=== PATIENT | female | born 1955 | race Caucasian/White ===

== ENCOUNTER 2022-02-12 16:17 | Outpatient (REF) | payer OTHER, MEDICARE, SELFPAY ==
[2022-02-12 17:08] LABS: Abs Immature Grans 0.03 10^3/uL (0.0-0.06); Absolute Basophil Count 0.04 10^3/uL (0.0-0.2); Absolute Eosinophil Count 0.11 10^3/uL (0.0-0.7); Absolute Lymphocyte Count 2.78 10^3/uL (1.2-3.4); Absolute Monocyte Count 0.49 10^3/uL (0.1-0.8); Absolute Neutrophil Count 4.15 10^3/uL (1.2-6.7); Basophils % 0.5; Eosinophils % 1.4; HCT 45.7 % (36.0-46.0); HGB 14.3 g/dL (11.2-15.7); Immature Grans % 0.4; Lymphocytes % 36.6; MCH 27.5 pg (27.0-33.0); MCHC 31.3 % (32.0-36.0); MCV 88 fL (80-95); MPV 10.5 fL (8.0-11.0); Monocytes % 6.4; Neutrophils % 54.7; Platelet Count 343 10^3/uL (130-400); RDW 13.2 % (11.7-14.6); RDW-SD 42.5 fL
[2022-02-12 17:11] LABS: ESR 66 mm/hr (0-30)
[2022-02-12 17:51] LABS: Vitamin D 25 Total 37.2 ng/mL (30-100)
[2022-02-12 17:52] LABS: ALT 38 U/L (14-59); AST 23 U/L (15-37); Albumin 3.8 g/dL (3.4-5.0); Alkaline Phosphatase 117 U/L (46-116); Anion Gap 10.5 mmol/L (3-11); BUN 19 mg/dL (7-18); Bilirubin, Total 0.3 mg/dL (0.2-1.0); CO2 27.5 mmol/L (21.0-32.0); CREATININE 0.7 mg/dL (0.55-1.02); Calcium 9.1 mg/dL (8.5-10.1); Calculated LDL 338 mg/dL (<100); Chloride 101 mmol/L (98-107); Cholesterol 422 mg/dL (<200); Glucose 198 mg/dL (74-106); HDL Cholesterol 50 mg/dL (40-60); Potassium 4.4 mmol/L (3.5-5.1); Sodium 139 mmol/L (136-145); TSH (W/Ref FT4) 1.51 uIU/mL (0.36-3.74); Total Protein 7.6 g/dL (6.4-8.2); Triglyceride 170 mg/dL (<150); Vitamin B12 342 pg/mL (193-986)
[2022-02-12 18:01] LABS: C-Reactive Protein 3.09 mg/dL (0.0-0.3)
[2022-02-14 10:51] LABS: Hepatitis C Ab w Rflx HCV PCR Negative (Negative)
[2022-02-14 11:20] LABS: HIV-1/2 Ag & Ab Screen Negative (Negative)
== END 2022-02-12 16:18 | disposition home or self-care (01) ==
LOC: NCHCN 16:17
PROVIDERS: PCP Nurse Practitioner Family; Visit Provider Nurse Practitioner Family
DX: E53.9 Vitamin B deficiency, unspecified (principal); E55.9 Vitamin D deficiency, unspecified; E78.70 Disorder of bile acid and cholesterol metabolism, unspecified; E11.9 Type 2 diabetes mellitus without complications; R79.82 Elevated C-reactive protein (CRP); R63.5 Abnormal weight gain; Z00.00 Encounter for general adult medical examination without abnormal findings; Z11.4 Encounter for screening for human immunodeficiency virus [HIV]; Z11.59 Encounter for screening for other viral diseases
CPT/HCPCS: 80053; 80061; 82306; 85652; 86803; 87389; 82607; 84443; 85025; 86140

== ENCOUNTER → 2022-02-22 02:36 | Outpatient (CLI) | payer OTHER, MEDICARE, SELFPAY ==
--- NOTE | 2022-02-22 14:30 | DI.MAMMO_ITS ---
Exam(s) MAMMO SCREENING EXAM: MAMMO SCREENING CLINICAL HISTORY: SCREENING, [facility], Z00.00. TECHNIQUE: Bilateral full field digital CC and MLO mammographic images were obtained with 3D tomosyn thesis and utilizing computer aided detection (CAD). COMPARISON: None. FINDINGS: Multiple small nodular densities in both breasts noted. Recommend comparison to prior outside mammograms. There is also a microcalcification group in the right breast requires comparison to prior mammograms. There is no significant architectural distortion nor skin thickening-retraction. IMPRESSION: Bilateral findings described above. Recommend comparison to prior mammograms. Addendum will follow if these are received. If not then repeat mammogram in 6 months would be recommended BI-RADS Category 3 - 6 month - Probably Benign Finding: Recommend follow-up mammography in 6 months Breast Density - Category B - Scattered areas of fibroglandular density Breast density Category C or D implies that the patient has dense breast tissue. Dense breast tissue can make it harder to find cancer on a mammogram. Dense breast tissue is also associated with an incr eased risk of breast cancer. This information about the result of the mammogram report was provided to the patient to raise their awareness. Use this report when you speak with the patient about their risks for breast cancer, which includes their family history. At that time, you may recommend additional screening tests (Ultrasoun d or MRI) as these tests may add significant information. A negative radiographic report should not delay biopsy if a dominant or clinically suspicious mass is present. Up to ten percent of cancers are not identified on mammography. A negative report may reinforce clinical impression. Adenosis and dense breasts may obscure an underlying neoplasm. False positive reports average 6 to 10%. Patient will receive a letter notifying them of these results.
== END ==
PROVIDERS: PCP Nurse Practitioner Family; Visit Provider Nurse Practitioner Family
DX: Z12.31 Encounter for screening mammogram for malignant neoplasm of breast (principal); R92.0 Mammographic microcalcification found on diagnostic imaging of breast; Z00.00 Encounter for general adult medical examination without abnormal findings
CPT/HCPCS: 77063; 77067

== ENCOUNTER 2022-03-15 04:32 | Outpatient (CLI) | payer OTHER, MEDICARE, SELFPAY ==
--- NOTE | 2022-03-15 14:00 | NS.NUTBLAN_ITS ---
Yamel was referred to diabetes and lipid self management education. 5'4 208 lbs BMI: 36 Labs: (02/12/22): Chol: 422, LDL: 338, HDL: 50, tri, A1C: 10.3%, VIt D: 37 L, TSH wnl DM meds: metformin 1000 mg BID Diet Recall: B: none, L: tofu, flaxseed, mae, wanuts- often eats only once daily. Hydrates all day. Session today focused on how to count carbs and protein and limit processed carbs with emphasis on lean protein and healthy fats. Xavier enjoys intermittent fasting and often eats only once daily. This works for her and she feels well- however, she is missing many necessary nutrients especially protein, Vit D. . Elevated lipids treated with a statin, weight loss and glycemic management should improve lipids as well. Surprised triglycerides only mildly elevated in view of A1C. Session also included placing Dexcom 6 continuous glucose monitor to better understand glycemic patterns. Most recent A1C indicates blood sugars mostly > 200 mg/dl. Encouraged using apps on phone to track carb/protein intake and steps per day. Follow up planned in next week for data download and review of glycemic excursions.
== END 2022-03-15 04:33 | disposition home or self-care (01) ==
LOC: DS 04:33
PROVIDERS: PCP Nurse Practitioner Family; Visit Provider Dietitian, Registered
DX: E11.9 Type 2 diabetes mellitus without complications (principal); E78.5 Hyperlipidemia, unspecified; Z79.84 Long term (current) use of oral hypoglycemic drugs; Z71.3 Dietary counseling and surveillance
CPT/HCPCS: 97802

== ENCOUNTER 2022-03-28 01:46 | Outpatient (CLI) | payer OTHER, MEDICARE, SELFPAY ==
--- OUTSIDE RECORDS SUMMARY | 2022-03-28 02:05 | XMS_ITS | Encounter Summary ---
:1955 Demographics Home Phone Preferred Language Unknown Marital Status Unknown Syn[employer] Affiliation Unknown Race Unknown Ethnic Group Unknown Author Organization [facility] Address [address] [place] [address] Care Team Providers Name Role Phone Unavailable Primary Care Provider Unavailable Encounter Details Date Type Department Care Team Description 02/13/2022 Lab Requisition [facility] Outr Resulting Lab, Pathology & Laboratory Provider [facility] [address] [place] [address] Social History Tobacco Use Types Packs/Day Years Used Date Never Assessed Sex Assigned at Date Recorded Not on file documented as of this encounter Plan of Treatment Not on filedocumented as of this encounter Procedures Procedure Name Priority Date/Time Associated Diagnosis Comme nts HEPATITIS C AB W Routine 02/12/2022 11:05 Results for this REFLEX TO HCV RNA EDT procedure are in BY PCR the results section. documented in this encounter Results HEPATITIS C AB W REFLEX TO HCV RNA BY PCR (02/12/2022 11:05 EDT) Pathologist Sig nature Hep C Antibody Negative Negative [facility] Specimen Blood - Venous blood (substance) Performing Organization Address City/State/ZIP Code Phon e Number [facility] [address] [place] [address] SERVICES documented in this encounter Visit Diagnoses Not on filedocumented in this encounter
--- OUTSIDE RECORDS SUMMARY | 2022-03-28 02:05 | XMS_ITS | Encounter Summary ---
:1955 Demographics Home Phone Preferred Language Unknown Marital Status Unknown Restorationism Affiliation Unknown Race Unknown Ethnic Group Unknown Author Organization [facility] Address [address] [place] [address] Care Team Providers Name Role Phone Unavailable Primary Care Provider Unavailable Encounter Details Date Type Department Care Team Description 02/13/2022 Lab Requisition [facility] Outr Resulting Lab, Pathology & Laboratory Provider [facility] [address] [place] [address] Social History Tobacco Use Types Packs/Day Years Used Date Never Assessed Sex Assigned at Date Recorded Not on file documented as of this encounter Plan of Treatment Not on filedocumented as of this encounter Procedures Procedure Name Priority Date/Time Associated Comments Diagnosis HIV 1/2 ANTIGEN AND Routine 02/12/2022 11:05 Resu lts for this ANTIBODY, 4TH EDT procedure are in GENERATION the results section. documented in this encounter Results HIV 1/2 ANTIGEN AND ANTIBODY, 4TH GENERATION (02/12/2022 11:05 EDT) HIV 1 and 2 NegativeComment: If Negative [facility] Antibody/p24 acute HIV-1 LABORATORY Antigen, 4th infection is SERVICES Generation suspected in a high risk patient, submit plasma specimen for HIV-1 RNA quantitation test. Specimen Blood - Venous blood (substance) Narrative [facility] - 02/14/2022 11:17 EDT Fourth Generation assay performed on the Siemens Centaur XPT. Performing Organization Address City/State/ZIP Code Phon e Number [facility] [address] [place] [address] SERVICES documented in this encounter Visit Diagnoses Not on filedocumented in this encounter
--- NOTE | 2022-03-28 13:00 | NS.NUTBLAN_ITS ---
Yamel returns for data down load after wearing a Dexcom 6 Continuous Glucose Monitor. Wt: 211 lbs, 5'4 down 5 lbs in last 4 weeks. Dm meds: 1000 mg metformin BID Diet Recall: eats once daily- typically tofu/tempeh with vegetables and complex carbs. Exercise: walks 30 min daily Ambulatory Glucose Profile: 03/12/22-03/25/22 Average Glucose: 132 mg/dl Time in Range (70-180): 94.6% of time 181- 250 mg/dl: 5.4% of time No hypoglycemia or levels above 250 mg/dl. Data indicates excellent glycemic management. Reports CGM data keeps her motivated to remain in ideal range. Will provide additional free sensor sample when supply available. At this time, Yamel will most likely will not be able to get sensors on her insurance plan as not taking multiple daily injections of insulin. No follow up scheduled at this time. Will follow up prn.
== END 2022-03-28 01:47 | disposition home or self-care (01) ==
PROVIDERS: PCP Nurse Practitioner Family; Visit Provider Dietitian, Registered
DX: E11.9 Type 2 diabetes mellitus without complications (principal); Z79.84 Long term (current) use of oral hypoglycemic drugs; Z71.3 Dietary counseling and surveillance
CPT/HCPCS: 97803

== ENCOUNTER 2022-11-29 17:26 | Outpatient (REF) | payer MEDICARE, OTHER, SELFPAY ==
[2022-11-29 19:51] LABS: Abs Immature Grans 0.01 10^3/uL (0.0-0.06); Absolute Basophil Count 0.04 10^3/uL (0.0-0.2); Absolute Eosinophil Count 0.09 10^3/uL (0.0-0.7); Absolute Lymphocyte Count 2.74 10^3/uL (1.2-3.4); Absolute Monocyte Count 0.52 10^3/uL (0.1-0.8); Absolute Neutrophil Count 3.82 10^3/uL (1.2-6.7); Basophils % 0.6; Eosinophils % 1.2; HCT 42.1 % (36.0-46.0); HGB 13.6 g/dL (11.2-15.7); Immature Grans % 0.1; MCH 28.3 pg (27.0-33.0); MCHC 32.3 % (32.0-36.0); MCV 88 fL (80-95); MPV 10.1 fL (8.0-11.0); Monocytes % 7.2; Neutrophils % 52.9; Platelet Count 336 10^3/uL (130-400); RBC 4.81 10^6/uL (3.93-5.22); RDW 13.3 % (11.7-14.6); WBC 7.22 10^3/uL (4.4-10.8)
[2022-11-29 20:06] LABS: Hemoglobin A1C 8.7 % (<5.7)
[2022-11-29 20:26] LABS: Vitamin D 25 Total 29.4 ng/mL (30-100)
[2022-11-29 20:28] LABS: Anion Gap 7.4 mmol/L (3-11); BUN 20 mg/dL (7-18); CO2 30.6 mmol/L (21.0-32.0); CREATININE 0.9 mg/dL (0.55-1.02); Calcium 9.5 mg/dL (8.5-10.1); Calculated LDL 283 mg/dL (<100); Chloride 99 mmol/L (98-107); Cholesterol 376 mg/dL (<200); Estimated GFR 70.95 (mL/min/1.73m2); Glucose 226 mg/dL (74-106); HDL Cholesterol 48 mg/dL (40-60); Potassium 4.5 mmol/L (3.5-5.1); Sodium 137 mmol/L (136-145); TSH (W/Ref FT4) 1.44 uIU/mL (0.36-3.74); Triglyceride 228 mg/dL (<150); Vitamin B12 316 pg/mL (193-986)
== END 2022-11-29 17:27 | disposition home or self-care (01) ==
LOC: NCHCN 17:26
PROVIDERS: PCP Nurse Practitioner Family; Visit Provider Nurse Practitioner Family
DX: E11.9 Type 2 diabetes mellitus without complications (principal)
CPT/HCPCS: 80048; 80061; 82306; 82607; 83036; 84443; 85025

== ENCOUNTER 2023-01-24 10:53 | Outpatient (CLI) | payer MEDICARE, OTHER, SELFPAY ==
--- NOTE | 2023-01-24 | DI.RAD_ITS ---
Exam(s) XR CHEST 2V PA LATERAL EXAM: XR CHEST 2V PA LATERAL CLINICAL HISTORY: CHRONIC COUGH R05.3 TECHNIQUE: 2D digital imaging was performed of the chest. Two images were obtained. PA and lateral views were obtained. COMPARISON: No exams were available for comparison FINDINGS: MEDIASTINUM: Normal. HEART: Normal. PULMONARY VASCULATURE: Normal. LUNGS: Clear. PLEURAL SPACE: No pleural effusion or pneumothorax. BONE:Within normal limits for the patient's age. OTHER FINDINGS:Normal. IMPRESSION: No acute pulmonary findings. DATA REPOSITORY: RADIATION DOSE DELIVERED:
== END 2023-01-24 11:13 ==
PROVIDERS: PCP Nurse Practitioner Family; Visit Provider Family Medicine
DX: R05.3 Chronic cough (principal)
CPT/HCPCS: 71046

== ENCOUNTER 2023-02-25 02:41 | Outpatient (CLI) | payer MEDICARE, OTHER, SELFPAY ==
--- NOTE | 2023-02-25 | DI.MAMMO_ITS ---
Exam(s) MAMMO SCREENING EXAM: MAMMO SCREENING CLINICAL HISTORY: SCREENING MAMMO FOR BREAST CANCER Z12.39 TECHNIQUE: Mammograms were interpreted according to the usual protocol including computer analysis w [employer] CAD system, tomosynthesis and C-view imaging. COMPARISON: 2018 and 2021 FINDINGS: The breasts are composed of mainly fatty density , Breast Density category A. No suspicious masses or suspicious microcalcifications are seen. No skin thickening or abnormal axillary lymph nodes are seen. Stable areas of nodularity in the left breast. There has been no significant change from prior exams. IMPRESSION: BI-RADS Category 2 - Benign Findings Yearly screening mammography is recommended. Breast Density - Category A, fatty density. A negative radiographic report should not delay biopsy if a dominant or clinically suspicious mass is present. Up to ten percent of cancers are not identified on mammography. A negative report may reinforce clinical impression. Adenosis and dense breasts may obscure an underlying neoplasm. False positive reports average 6 to 10%. Patient will receive a letter notifying them of these results.
== END 2023-02-25 03:01 ==
PROVIDERS: PCP Nurse Practitioner Family; Visit Provider Nurse Practitioner Family
DX: Z12.31 Encounter for screening mammogram for malignant neoplasm of breast (principal)
CPT/HCPCS: 77063; 77067

== ENCOUNTER 2023-03-22 15:28 | Outpatient (REF) | payer MEDICARE, OTHER, SELFPAY ==
[2023-03-22 15:57] LABS: ALT 39 U/L (14-59); AST 27 U/L (15-37); Albumin 3.5 g/dL (3.4-5.0); Alkaline Phosphatase 55 U/L (46-116); Anion Gap 8.8 mmol/L (3-11); BUN 23 mg/dL (7-18); Bilirubin, Total 0.2 mg/dL (0.2-1.0); CO2 28.2 mmol/L (21.0-32.0); Calcium 9.6 mg/dL (8.5-10.1); Calculated LDL 215 mg/dL (<100); Chloride 107 mmol/L (98-107); Cholesterol 281 mg/dL (<200); Estimated GFR 62.13 (mL/min/1.73m2); Glucose 112 mg/dL (74-106); HDL Cholesterol 40 mg/dL (40-60); Potassium 4.8 mmol/L (3.5-5.1); Sodium 144 mmol/L (136-145); Total Protein 7.5 g/dL (6.4-8.2); Triglyceride 130 mg/dL (<150)
[2023-03-22 16:13] LABS: Hemoglobin A1C 7.3 % (<5.7)
== END 2023-03-22 15:29 | disposition home or self-care (01) ==
LOC: NCHCN 15:28
PROVIDERS: PCP Nurse Practitioner Family; Visit Provider Nurse Practitioner Family
DX: E78.00 Pure hypercholesterolemia, unspecified (principal); E11.65 Type 2 diabetes mellitus with hyperglycemia
CPT/HCPCS: 80053; 80061; 83036

== ENCOUNTER 2023-10-16 12:43 | Outpatient (REF) | payer MEDICARE, OTHER, SELFPAY ==
[2023-10-16 15:53] LABS: ALT 42 U/L (14-59); AST 22 U/L (15-37); Alkaline Phosphatase 75 U/L (46-116); Anion Gap 11.6 mmol/L (3-11); BUN 19 mg/dL (7-18); Bilirubin, Total 0.3 mg/dL (0.2-1.0); CO2 29.4 mmol/L (21.0-32.0); Calculated LDL 240 mg/dL (<100); Chloride 100 mmol/L (98-107); Cholesterol 332 mg/dL (<200); Estimated GFR 62.13 (mL/min/1.73m2); Glucose 157 mg/dL (74-106); HDL Cholesterol 55 mg/dL (40-60); Potassium 4.8 mmol/L (3.5-5.1); Sodium 141 mmol/L (136-145); TSH 1.89 uIU/mL (0.36-3.74); Total Protein 7.7 g/dL (6.4-8.2); Triglyceride 185 mg/dL (<150)
[2023-10-16 16:10] LABS: FREE T4 0.96 ng/dL (0.76-1.46); Hemoglobin A1C 8.7 % (<5.7)
== END 2023-10-16 12:44 | disposition home or self-care (01) ==
LOC: NCHCN 12:43
PROVIDERS: PCP Nurse Practitioner Family; Visit Provider Nurse Practitioner Family
DX: E11.9 Type 2 diabetes mellitus without complications (principal); E78.70 Disorder of bile acid and cholesterol metabolism, unspecified; R63.5 Abnormal weight gain
CPT/HCPCS: 80053; 80061; 83036; 84439; 84443

== ENCOUNTER 2024-03-18 14:11 | Outpatient (CLI) | payer MEDICARE, OTHER, SELFPAY ==
[2024-03-18 13:49] LABS: Abs Immature Grans 0.04 10^3/uL (0.0-0.06); Absolute Basophil Count 0.07 10^3/uL (0.0-0.2); Absolute Eosinophil Count 0.11 10^3/uL (0.0-0.7); Absolute Lymphocyte Count 2.67 10^3/uL (1.2-3.4); Absolute Monocyte Count 0.46 10^3/uL (0.1-0.8); Absolute Neutrophil Count 3.64 10^3/uL (1.2-6.7); Eosinophils % 1.6 %; HCT 45.7 % (36.0-46.0); HGB 14.8 g/dL (11.2-15.7); Immature Grans % 0.6 %; Lymphocytes % 38.2 %; MCHC 32.4 % (32.0-36.0); MCV 86 fL (80-95); MPV 10.2 fL (8.0-11.0); Monocytes % 6.6 %; Platelet Count 331 10^3/uL (130-400); RBC 5.29 10^6/uL (3.93-5.22); RDW 13.7 % (11.7-14.6); RDW-SD 43.8 fL; WBC 6.99 10^3/uL (4.4-10.8)
[2024-03-18 14:32] LABS: Iron 64 ug/dL (50-170); Total Iron Binding Capacity 352 ug/dL (250-450); Transferrin Sat 18 % (15-50)
[2024-03-18 14:42] LABS: ALT 49 U/L (14-59); AST 32 U/L (15-37); Albumin 3.9 g/dL (3.4-5.0); Alkaline Phosphatase 79 U/L (46-116); Anion Gap 10.5 mmol/L (3-11); BUN 19 mg/dL (7-18); Bilirubin, Total 0.28 mg/dL (0.2-1.0); CO2 29.5 mmol/L (21.0-32.0); CREATININE 0.8 mg/dL (0.55-1.02); Calcium 9.9 mg/dL (8.5-10.1); Calculated LDL 241 mg/dL (<100); Chloride 101 mmol/L (98-107); Cholesterol 325 mg/dL (<200); Estimated GFR 80.71 (mL/min/1.73m2); Ferritin 110 ng/mL (8-252); Folate 18.4 ng/mL (8.6-20.0); Glucose 98 mg/dL (74-106); HDL Cholesterol 46 mg/dL (40-60); Magnesium 1.7 mg/dL (1.8-2.4); Potassium 4.2 mmol/L (3.5-5.1); Sodium 141 mmol/L (136-145); TSH 2.15 uIU/Ml (0.36-3.74); Total Protein 8.1 g/dL (6.4-8.2); Triglyceride 191 mg/dL (<150); Vitamin B12 286 pg/mL (193-986)
[2024-03-18 14:59] LABS: FREE T4 1.02 ng/dL (0.76-1.46)
[2024-03-20 20:00] LABS: Iodine, S 139 ng/mL (40-92)
== END 2024-03-18 14:12 | disposition home or self-care (01) ==
LOC: LBO 14:11
PROVIDERS: Visit Provider Nurse Practitioner Family
DX: E11.9 Type 2 diabetes mellitus without complications (principal); E55.9 Vitamin D deficiency, unspecified; E78.70 Disorder of bile acid and cholesterol metabolism, unspecified; E53.9 Vitamin B deficiency, unspecified; R53.83 Other fatigue; R25.2 Cramp and spasm
CPT/HCPCS: 36415; 80053; 80061; 82306; 82190; 82607; 82728; 82746; 83540; 83550; 83735; 84439; 84443; 85025

== ENCOUNTER 2024-06-26 14:49 | Outpatient (REF) | payer MEDICARE, OTHER, SELFPAY ==
[2024-06-26 18:57] LABS: Abs Immature Grans 0.03 10^3/uL (0.0-0.06); Absolute Basophil Count 0.05 10^3/uL (0.0-0.2); Absolute Eosinophil Count 0.07 10^3/uL (0.0-0.7); Absolute Lymphocyte Count 1.83 10^3/uL (1.2-3.4); Absolute Neutrophil Count 3.16 10^3/uL (1.2-6.7); Basophils % 0.9 %; Eosinophils % 1.3 %; HCT 47.8 % (36.0-46.0); HGB 15.2 g/dL (11.2-15.7); Immature Grans % 0.5 %; MCH 27.6 pg (27.0-33.0); MCHC 31.8 % (32.0-36.0); MCV 87 fL (80-95); MPV 10.5 fL (8.0-11.0); Monocytes % 7.2 %; Neutrophils % 57.1 %; Platelet Count 290 10^3/uL (130-400); RDW-SD 44.8 fL; WBC 5.54 10^3/uL (4.4-10.8)
[2024-06-26 19:06] LABS: Iron 62 ug/dL (50-170); Total Iron Binding Capacity 334 ug/dL (250-450); Transferrin Sat 19 % (15-50)
[2024-06-26 19:25] LABS: COMMENT (LAB VIEW ONLY) 56.03 mg/dL; Microalb ug/mg Crea 5.7 ug/mg Cr
[2024-06-26 19:35] LABS: ALT 28 U/L (14-59); AST 25 U/L (15-37); Albumin 3.8 g/dL (3.4-5.0); Alkaline Phosphatase 83 U/L (46-116); Anion Gap 9.5 mmol/L (3-11); BUN 13 mg/dL (7-18); Bilirubin, Total 0.32 mg/dL (0.2-1.0); CO2 29.5 mmol/L (21.0-32.0); CREATININE 0.9 mg/dL (0.55-1.02); Calculated LDL 260 mg/dL (<100); Chloride 99 mmol/L (98-107); Cholesterol 325 mg/dL (<200); Estimated GFR 70.07 (mL/min/1.73m2); FREE T4 1.04 ng/dL (0.76-1.46); Ferritin 121 ng/mL (8-252); Glucose 105 mg/dL (74-106); HDL Cholesterol 43 mg/dL (40-60); Magnesium 1.8 mg/dL (1.8-2.4); Potassium 4.6 mmol/L (3.5-5.1); Sodium 138 mmol/L (136-145); TSH 1.48 uIU/mL (0.36-3.74); Total Protein 8.2 g/dL (6.4-8.2); Triglyceride 110 mg/dL (<150); Vitamin B12 556 pg/mL (193-986); Vitamin D 25 Total 34.7 ng/mL (30-100)
[2024-06-26 19:42] LABS: Folate > 20.0 ng/mL (8.6-20.0)
== END 2024-06-26 14:50 | disposition home or self-care (01) ==
LOC: NCHCN 14:49
PROVIDERS: PCP Nurse Practitioner Family; Visit Provider Nurse Practitioner Family
DX: E11.9 Type 2 diabetes mellitus without complications (principal)
CPT/HCPCS: 80053; 80061; 82306; 82043; 82570; 82607; 82728; 82746; 83540; 83550; 83735; 84439; 84443; 85025

== ENCOUNTER 2024-08-10 02:07 | Outpatient (CLI) | payer MEDICARE, OTHER, SELFPAY ==
--- NOTE | 2024-08-10 07:15 | DI.US_ITS ---
Exam(s) US PELVIS TRANSVAGINAL EXAM: US PELVIS TRANSVAGINAL CLINICAL HISTORY: anatomy,PELVIC PAIN,R10.2 TECHNIQUE: Transabdominal and transvaginal imaging was performed using standard protocol. COMPARISON: No exams were available for comparison FINDINGS: The bladder is unremarkable. UTERUS: Anteverted. 5.2 x 2.9 x 3.4 cm Endometrium: 2 mm Myometrium: 5 millimeter hypoechoic area could represent small fibroid. Other area of probable fibro id closer to the fundus anterior measuring 2 x 1.3 x 1.8 cm. Cervix: Tiny nabothian cysts. OVARIES: Right: Not visualized Left: Not visualized CUL-DE-SAC: Free fluid: None. IMPRESSION: 1. Small uterine fibroids.. 2. Neither ovary was visualized. DATA REPOSITORY:
== END 2024-08-10 02:27 ==
LOC: DI 02:08
PROVIDERS: PCP Nurse Practitioner Family; Visit Provider Obstetrics & Gynecology
DX: R10.2 Pelvic and perineal pain (principal)
CPT/HCPCS: 76830; 76856

== ENCOUNTER 2024-08-19 01:30 | Outpatient (CLI) | payer MEDICARE, OTHER, SELFPAY ==
--- NOTE | 2024-08-19 12:25 | DI.MAMMO_ITS ---
Exam(s) MAMMO SCREENING EXAM: MAMMO SCREENING CLINICAL HISTORY: screening. TECHNIQUE: Bilateral full field digital CC and MLO mammographic images were obtained with 3D tomosyn thesis and utilizing computer aided detection (CAD). COMPARISON: Prior mammograms were reviewed. FINDINGS: There has been no significant change in the appearance and distribution of the fibroglandular tissue. Nodular densities in the left breast remains stable from prior mammograms. There are no new spiculated masses nor new malignant appearing microcalcification groups. There is no significant architectural distortion nor skin thickening-retraction. IMPRESSION: No radiographic evidence of malignancy. Stable benign-appearing findings. BI-RADS Category 2 - Benign Findings Breast Density - Category B - Scattered areas of fibroglandular density Breast density Category C or D implies that the patient has dense breast tissue. Dense breast tissue can make it harder to find cancer on a mammogram. Dense breast tissue is also associated with an incr eased risk of breast cancer. This information about the result of the mammogram report was provided to the patient to raise their awareness. Use this report when you speak with the patient about their risks for breast cancer, which includes their family history. At that time, you may recommend additional screening tests (Ultrasoun d or MRI) as these tests may add significant information. A negative radiographic report should not delay biopsy if a dominant or clinically suspicious mass is present. Up to ten percent of cancers are not identified on mammography. A negative report may reinforce clinical impression. Adenosis and dense breasts may obscure an underlying neoplasm. False positive reports average 6 to 10%. Patient will receive a letter notifying them of these results.
== END 2024-08-19 01:50 ==
LOC: DI 01:30
PROVIDERS: PCP Nurse Practitioner Family; Visit Provider Obstetrics & Gynecology
DX: Z12.31 Encounter for screening mammogram for malignant neoplasm of breast (principal); R92.323 Mammographic fibroglandular density, bilateral breasts; D24.2 Benign neoplasm of left breast
CPT/HCPCS: 77063; 77067

== ENCOUNTER 2024-09-15 17:07 | Outpatient (REF) | payer MEDICARE, OTHER, SELFPAY ==
[2024-09-15 19:24] LABS: Abs Immature Grans 0.02 10^3/uL (0.0-0.06); Absolute Basophil Count 0.06 10^3/uL (0.0-0.2); Absolute Eosinophil Count 0.08 10^3/uL (0.0-0.7); Absolute Lymphocyte Count 2.77 10^3/uL (1.2-3.4); Absolute Monocyte Count 0.48 10^3/uL (0.1-0.8); Absolute Neutrophil Count 3.77 10^3/uL (1.2-6.7); Basophils % 0.8 %; Eosinophils % 1.1 %; HCT 45.4 % (36.0-46.0); HGB 14.5 g/dL (11.2-15.7); Immature Grans % 0.3 %; Lymphocytes % 38.6 %; MCH 27.1 pg (27.0-33.0); MCHC 31.9 % (32.0-36.0); MCV 85 fL (80-95); MPV 10.4 fL (8.0-11.0); Monocytes % 6.7 %; Neutrophils % 52.5 %; Platelet Count 333 10^3/uL (130-400); RBC 5.35 10^6/uL (3.93-5.22); RDW 15.2 % (11.7-14.6); RDW-SD 46.8 fL; WBC 7.18 10^3/uL (4.4-10.8)
[2024-09-15 19:42] LABS: Calculated LDL 300 mg/dL (<100); Cholesterol 390 mg/dL (<200); HDL Cholesterol 62 mg/dL (40-60); Triglyceride 142 mg/dL (<150); Vitamin B12 484 pg/mL (193-986)
[2024-09-15 19:44] LABS: Folate > 20.0 ng/mL (8.6-20.0)
== END 2024-09-15 17:08 | disposition home or self-care (01) ==
LOC: NCHCN 17:07
PROVIDERS: PCP Nurse Practitioner Family; Visit Provider Nurse Practitioner Family
DX: E78.70 Disorder of bile acid and cholesterol metabolism, unspecified (principal); R53.83 Other fatigue
CPT/HCPCS: 80061; 82607; 82746; 85025

== ENCOUNTER 2024-12-21 08:02 | Outpatient (CLI) | payer MEDICARE, OTHER, SELFPAY ==
--- NOTE | 2024-12-21 08:00 | RT.EKG_ITS ---
APPROVED REPORT Exam: Resting ECG Reason for Exam: elevated ASCVD risk Patient Location: O HR:62 bpm ECG Measurements Heart Rate 62 AXIS VA 216 P 33 QRSd 99 QRS -6 QT 417 T 37 QTc 424 Conclusion Sinus rhythm...normal P axis, V-rate 50- 99 Borderline prolonged VA interval...VA >212, V-rate 50- 90
== END 2024-12-21 08:03 | disposition home or self-care (01) ==
LOC: DI.CARD 08:03
PROVIDERS: PCP Nurse Practitioner Family; Visit Provider Registered Nurse
DX: Z82.49 Family history of ischemic heart disease and other diseases of the circulatory system (principal); E78.9 Disorder of lipoprotein metabolism, unspecified; Z91.89 Other specified personal risk factors, not elsewhere classified; I45.19 Other right bundle-branch block
CPT/HCPCS: 93010

== ENCOUNTER → 2024-12-21 08:19 | Outpatient (BNVA) | payer MEDICARE, OTHER, SELFPAY | PROVIDERS: PCP Nurse Practitioner Family; Referring Provider Nurse Practitioner Family; Visit Provider Registered Nurse | DX: E78.01 Familial hypercholesterolemia (principal); R06.00 Dyspnea, unspecified; Z82.49 Family history of ischemic heart disease and other diseases of the circulatory system | CPT/HCPCS: 36415; 80061; 83695; 93005; 99205 ==

== ENCOUNTER 2024-12-21 12:31 | Outpatient (CLI) | payer MEDICARE, OTHER, SELFPAY ==
[2024-12-21 09:55] LABS: Calculated LDL 256 mg/dL (<100); Cholesterol 352 mg/dL (<200); HDL Cholesterol 54 mg/dL (>or=50); Triglyceride 212 mg/dL (<150)
[2024-12-23 10:54] LABS: Lipoprotein (a) 279 nmol/L (<75)
== END 2024-12-21 12:32 | disposition home or self-care (01) ==
LOC: LBO 12:37
PROVIDERS: PCP Nurse Practitioner Family; Visit Provider Registered Nurse
DX: E78.01 Familial hypercholesterolemia (principal)
CPT/HCPCS: 36415; 80061; 83695

== ENCOUNTER 2024-12-31 01:00 | Outpatient (CLI) | payer MEDICARE, OTHER, SELFPAY ==
--- NOTE | 2024-12-31 05:45 | ETT_ITS ---
APPROVED REPORT Exam: Exercise Treadmill Patient Location: Out-Patient Room/Bed: Stress Nurse: Krista Del Valle RN Ordering Provider:SANIA DE LA TORRE, Contact Number: [phone] BMI: 33.27 Baseline Rhythm: Sinus Bradycardia Indications: Dyspnea, Medical History Medical History: Familial hypercholesterolemia, DMT2, obesity Cardiac Medications: Repatha, ezetimibe, magnesium Allergies: Cephalexin Cardiac Risk Factors: Family hx, diabetes, HLD, obesity Previous Cardiac Procedures: None Pretest Chest Pain Characteristics: None Exercise History: Physically active Physical Disabilities: None Lung Sounds: Clear to auscultation Heart Sounds: Regular Stress Test Details Test: Exercise stress testing was performed using a Brian protocol. Rest Stress HR Resting HR Supine: 52 bpm Max Heart Rate (APMHR): 152 bpm Resting HR Standin bpm Target HR (85% APMHR): 129 bpm Max HR Achieved: 143 bpm % of APMHR: 94 Recovery HR: 75 bpm HR response to stress: Normal HR response to stress BP Resting BP Supine: 134/70 mmHg Resting BP Standin/68 mmHg Max BP: 178/58 mmHg Recovery BP: 136/74 mmHg BP response to stress: Normal blood pressure response to stress. ECG Resting ECG: Sinus Bradycardia Stress ECG: Sinus Rhythm ST Change: No significant ST segment changes noted Recovery ECG: Sinus Rhythm Recovery ST Change: No significant ST segment changes noted Clinical Reason for Termination: Target HR Achieved Stress Symptoms: None Exercise duration: 05 min56 sec Highest Stage Reached: Stage 2: 2.5 mph at 12% grade. Exercise capacity: 7.05 METs Angina Score: None [place] Treadmill Score: 4.9 Rate Pressure Product: [id number] Stress ECG Conclusion 1. Resting electrocardiogram showed low voltage 2. Patient exercised on the Brian protocol and completed workload of 7 METS 3. Normal heart rate and blood pressure response to exercise. The patient achieved 94% of maximal pr edicted heart rate for age 4. There was no electrocardiographic evidence of myocardial ischemia 5. There were no significant dysrhythmias [place] Treadmill Score is 4.9 which is Moderate risk. Stress Test Summary STAGE Time (mins) Speed (mph) Grade (%) HR BP SpO2 SYMPTOMS METS Supine 52 134/70 94% Standing 58 128/68 1 3 1.7 10 109 138/70 94% 4.5 2 6 2.5 12 143 7 1 min recovery 119 178/58 95% 3 min recovery 76 164/68 6 min recovery 75 136/74 96%
== END 2024-12-31 01:20 ==
LOC: DI 01:00
PROVIDERS: PCP Nurse Practitioner Family; Visit Provider Internal Medicine Cardiovascular Disease
DX: R06.00 Dyspnea, unspecified (principal)
CPT/HCPCS: 93016; 93018; 93017

== ENCOUNTER 2025-03-02 13:48 | Outpatient (REF) | payer MEDICARE, OTHER, SELFPAY ==
[2025-03-02 17:30] LABS: COMMENT (LAB VIEW ONLY) 61.42 mg/dL
== END 2025-03-02 13:49 | disposition home or self-care (01) ==
LOC: NCHCN 13:48
PROVIDERS: PCP Nurse Practitioner Family; Visit Provider Student in an Organized Health Care Education/Training Program
DX: E11.9 Type 2 diabetes mellitus without complications (principal)
CPT/HCPCS: 82043; 82570

== ENCOUNTER → 2025-03-15 10:39 | Outpatient (BNVA) | payer MEDICARE, OTHER, SELFPAY | PROVIDERS: PCP Nurse Practitioner Family; Referring Provider Nurse Practitioner Family; Visit Provider Registered Nurse | DX: E78.01 Familial hypercholesterolemia (principal); E11.9 Type 2 diabetes mellitus without complications | CPT/HCPCS: 99214 ==

== ENCOUNTER 2025-03-16 10:24 | Outpatient (CLI) | payer MEDICARE, OTHER, SELFPAY ==
[2025-03-16 10:55] LABS: Calculated LDL 189 mg/dL (<100); Cholesterol 280 mg/dL (<200); HDL Cholesterol 51 mg/dL (>or=50); Triglyceride 203 mg/dL (<150)
== END 2025-03-16 10:25 | disposition home or self-care (01) ==
LOC: LBO 10:24
PROVIDERS: PCP Nurse Practitioner Family; Visit Provider Registered Nurse
DX: E78.01 Familial hypercholesterolemia (principal)
CPT/HCPCS: 36415; 80061

== ENCOUNTER 2025-04-28 03:08 | Outpatient (CLI) | payer MEDICARE, OTHER, SELFPAY ==
[2025-04-28 12:16] LABS: Calculated LDL 67 mg/dL (<100); Cholesterol 163 mg/dL (<200); HDL Cholesterol 60 mg/dL (>or=50); Triglyceride 184 mg/dL (<150)
== END 2025-04-28 03:09 | disposition home or self-care (01) ==
LOC: LBO 03:08
PROVIDERS: PCP Nurse Practitioner Family; Visit Provider Registered Nurse
DX: E78.9 Disorder of lipoprotein metabolism, unspecified (principal); Z82.49 Family history of ischemic heart disease and other diseases of the circulatory system; E78.01 Familial hypercholesterolemia
CPT/HCPCS: 36415; 80061

== ENCOUNTER → 2025-05-05 12:54 | Outpatient (BNVA) | payer MEDICARE, OTHER, SELFPAY | PROVIDERS: PCP Nurse Practitioner Family; Referring Provider Nurse Practitioner Family; Visit Provider Registered Nurse | DX: E78.01 Familial hypercholesterolemia (principal) | CPT/HCPCS: 99215 ==

== ENCOUNTER → 2025-05-13 12:52 | Outpatient (BNVA) | payer MEDICARE, OTHER, SELFPAY | PROVIDERS: PCP Nurse Practitioner Family; Referring Provider Nurse Practitioner Family; Visit Provider Physical Therapy Assistant | DX: Z12.11 Encounter for screening for malignant neoplasm of colon (principal); E11.9 Type 2 diabetes mellitus without complications | CPT/HCPCS: 99213 ==

== ENCOUNTER 2025-06-03 04:03 | Outpatient (CLI) | payer MEDICARE, OTHER, SELFPAY ==
--- NOTE | 2025-06-03 05:45 | DI.US_ITS ---
APPROVED REPORT EXAM: Comprehensive 2D, Doppler, and color-flow Echocardiogram Patient Location: Out-Patient Actuarial Science Teacher: Katalina Koo RDCS (AE) Indications: Chest Pain Other Information Study Quality: Adequate Conclusion Normal left ventricular wall thickness and chamber size. Ejection fraction is 55 to 60%. Wall motion is normal Normal right ventricular size and function Both atria are normal in size Aortic valve is mildly sclerotic and trileaflet without stenosis or regurgitation Mild mitral annular calcification Wall motion Left Ventricle The left ventricle is normal size. The left ventricular systolic function is normal. The left ventricular ejection fraction is within the normal range. There is normal left ventricular wall thickness. There is normal LV segmental wall motion. There is no ventricular septal defect visualized. LVEF is 58%. Right Ventricle The right ventricle is normal size. The right ventricular systolic function is normal. Atria The left atrium size is normal. The right atrium size is normal. The interatrial septum is intact with no evidence for an atrial septal defect. Aortic Valve The Aortic valve is mildly sclerotic. Aortic valve is trileaflet. There is no aortic valvular stenosis. No aortic regurgitation is present. Mitral Valve Mild mitral annular calcification. No evidence of mitral valve stenosis. Trace mitral regurgitation. Tricuspid Valve The tricuspid valve is normal in structure. There is no tricuspid valve stenosis. Trace tricuspid regurgitation. Unable to assess PA pressure. Pulmonic Valve The pulmonary valve is normal in structure. There is no pulmonic valvular stenosis. There is no pulmonic valvular regurgitation. Great Vessels The aortic root is normal in size. The ascending aorta is normal in size. Aortic arch is normal in caliber. IVC is normal in size and collapses >50% with inspiration. Pericardium There is no pericardial effusion. 2D Dimensions IVSD d PLAX 1.00 cm F: 0.6-1.0 Ao Root d 2.88 cm F: 2.7 - 3.3 LVPW d PLAX 1.00 cm F: 0.6 - 1.0 Ao Asc Diam d 3.18 cm F: 2.3 - 3.1 LVID d PLAX 4.62 cm F: 3.8 - 5.2 LVDs 3.22 cm F: 2.2 - 3.5 LV EF Teichholz 57.8 % FS 30.39 % LV EDV (Teich) 98.3 mL LV ESV (Teich) 41.5 mL M-Mode TAPSE 1.43 cm (M/F) >1.7 Auto EF LV EDV A4C 94.0 mL LV EDV A2C 81.7 mL LV EDV BP 86.7 mL LV ESV A4C 39.4 mL LV ESV A2C 34.4 mL LV ESV BP 36.1 mL LVEF(%) A4C 58.1 % LVEF(%) A2C 57.9 % LVEF(%) BP 58.4 % LV SV A4C 54.6 ml LV SV A2C 47.3 ml LV SV BP 50.6 ml LV CO A4C 3.3 L/min LV CO A2C 2.9 L/min LV CO BP 3.1 L/min HR A4C 61.33 BPM HR A2C 61.44 BPM LV EDV Index (BP) LA Volume LA Length A4C 4.4 cm LA Length A2C 4.9 cm LA Area A4C s 13.73 cm2 LA Area A2C s 13.49 cm2 LA Vol A4C A-L 36.67 mL LA Vol A2C A-L 31.46 mL LA Vol Biplane A-L 36.0 mL LA Vol/BSA A4C A-L LA Vol/BSA A2C A-L LA Vol/BSA BP A-L 17.7 mL/m2 LA Vol A4C MOD 33.0 mL LA Vol A2C MOD 29.6 mL LA Vol BP MOD 33.1 mL RA Volume RA Area A4C 11.5 cm2 RA ESV A4C (A-L) 26.6mL RA Vol/BSA A4C A-L RA Length A4C 4.2 cm RA ESV A4C (MOD) 24.3mL LV Diastology MV E' medial 0.050 (>0.07 m/s) MV E Vmax 0.87 (0.4-1.3 m/s) MV E/E' MED 17.25 (<14) MV A Vmax 0.95 (0.4-1.3 m/s) MV E' lateral 0.082 (>0.1 m/s) E/A Ratio 0.9 MV E/E' LAT 10.53 (<14) MV E' Average 0.066 m/s MV E/E'(average) 13.07 Aortic Valve AoV Vmax 1.37 m/s LVOT Vmax 1.32 m/s AoV Peak Grad 7.5 mmHg LVOT Peak Grad 7.0 mmHg AoV Area (Vmax) 2.68 cm2 LVOT VTI 0.312 m AoV VTI 0.338 m LVOT Mean Grad 4.3 mmHg AoV Mean Gaurav. 0.99 m/s LVOT SV 86.42 mL AoV Mean Grad 4.4 mmHg LVOT Diam s 1.85 cm AoV Area (VTI) 2.56 cm2 AV Regurg Peak Gr. 7.51 mmHg Velocity Ratio 0.96 Mitral Valve MV DT 270 (160-240 msec) MV Vmax TIPS 0.93 m/s MV Mean Grad 1.3 (<2mmHg) MV VTI 0.285 m Pulmonary Valve PV Vmax 1.02 (0.5-1.5 m/s) RVOT Vmax 0.68 m/s PV Peak Grad 4.1 mmHg RVOT Peak Gr. 1.8 mmHg PV Mean Gaurav 0.64 m/s RVOT VTI 0.169 m PV Mean Grad 1.9 mmHg RVOT Mean Gr. 1.1 mmHg Tricuspid Valve RA Pressure 3.00 mmHg TV S' 0.10 m/s
--- NOTE | 2025-06-03 05:45 | DI.NM_ITS ---
APPROVED REPORT Exam: Exercise Treadmill Patient Location: Out-Patient Room/Bed: Stress Nurse: Krista Del Valle RN Ordering Provider:SANIA DE LA TORRE, Contact Number: BMI: 34.32 Baseline Rhythm: Sinus Rhythm Indications: Chest pain Medical History Medical History: Familial hypercholesteremia, fatigue, obesity, DMT2 Cardiac Medications: Zetia, metformin Allergies: Cephalexin Cardiac Risk Factors: Family hx, HLD, diabetes, obesity Previous Cardiac Procedures: None Pretest Chest Pain Characteristics: 4/10 chest tightness Exercise History: Indeterminate Physical Disabilities: None Lung Sounds: Clear to auscultation, Clear to auscultation Heart Sounds: Regular Stress Test Details Test: Exercise stress testing was performed using a Brian protocol. Nuclear Acquisition: Rest Tc-99m/Stress Tc-99m 1 day Rest Isotope: Tc-99m Sestamibi. Dose: 9.7 Date: 06/03/2025 Injection Time: 0820 Stress Isotope: Tc-99m Sestamibi. Dose: 32.5 Date: 06/03/2025 Injection Time: 0955 HR Resting HR Supine: 66 bpm Max Heart Rate (APMHR): 152 bpm Resting HR Standin bpm Target HR (85% APMHR): 129 bpm Max HR Achieved: 138 bpm % of APMHR: 91 Recovery HR: 77 bpm HR response to stress: Normal HR response to stress BP Resting BP Supine: 118/78 mmHg Resting BP Standin/84 mmHg Max BP: 198/58 mmHg Recovery BP: 128/80 mmHg BP response to stress: Normal blood pressure response to stress. ECG Resting ECG: Sinus Rhythm Stress ECG: Sinus Tachycardia ST Change: No significant ST segment changes noted Recovery ECG: Sinus Rhythm Recovery ST Change: No significant ST segment changes noted Clinical Reason for Termination: Chest tightness 6/10, genralized fatigue, very anxious Stress Symptoms: 6/10 chest tightness, fatigue, very anxious Exercise duration: 03 min59 sec Highest Stage Reached: Stage 2: 2.5 mph at 12% grade. Exercise capacity: 5.83 METs Angina Score: Exercise-Limiting Rate Pressure Product: [id number] Stress ECG Conclusion 1. Resting electrocardiogram was normal 2. Patient exercised on the Brian protocol and completed a workload of 5.83 METS 3. Normal heart rate and blood pressure response to exercise. The patient achieved 91% of maximal predicted heart rate for age 4. There was no electrocardiographic evidence of myocardial ischemia 5. There were no significant dysrhythmias 6. See MPI report Stress Test Summary STAGE Time (mins) Speed (mph) Grade (%) HR BP SpO2 SYMPTOMS METS Supine 66 118/78 95% Standing 72 128/84 1 3 1.7 10 136 198/78 94% 4.5 1 min recovery 120 198/58 6/10 chest tightness 3 min recovery 77 188/70 97% 6/10 chest tightness 6 min recovery 76 148/78 4/10 chest tightness, very anxious 9 min recovery 77 128/80 96% Patient requested to stop treadmill r/t 6/10 chest tightness, generalized fatigue and feeling very anxious. Target HR achieved. Patient proceeded to imaging ambulatory in no apparent distress. MPI Conclusion Myocardial perfusion is normal. There is no ischemia or evidence of prior infarction Ejection fraction is 69% with normal wall motion
== END 2025-06-03 04:23 ==
LOC: DI 04:03
PROVIDERS: PCP Nurse Practitioner Family; Visit Provider Registered Nurse
DX: R07.9 Chest pain, unspecified (principal); I35.0 Nonrheumatic aortic (valve) stenosis
CPT/HCPCS: 78452; 93016; 93018; 93306; 93017

== ENCOUNTER 2025-07-07 06:05 | Day surgery (SDC) | payer MEDICARE, OTHER, SELFPAY ==
[2025-07-07 06:15] VITALS: BP 168/89; PULSE 84; RESP 18; TEMP 36.5; O2SAT 96
[2025-07-07] MEDS: Lactated Ringers 1,000 ML 80 ML IV (06:32)
--- NOTE | 2025-07-07 07:05 | W.ANESPRE ---
General Info Date of Service Date Performed: 07/07/25 Height: 5 ft 5 in Weight: 94.8 kg Body Mass Index (BMI): 34.7 Surgical Procedure: Operation Date: 07/07/25 07:35 Proposed Procedure Side Surgeon ely Peña MD Meds Allergies and Home Medications Allergies Allergy/AdvReac Type Severity Reaction Status Date / Time cephalexin Allergy Severe Anaphylaxis Verified 07/07/25 06:25 Home Medication Medication Instructions Recorded cholecalciferol (vitamin D3) 10 1,000 unit PO DAILY 11/25/24 mcg/5 mL (400 unit/5 mL) oral liquid nystatin 100,000 unit/gram topical 1 applic topical DAILY PRN 11/25/24 cream omega 3-pjl-enb-fish oil 60 mg-90 1 cap PO DAILY 11/25/24 mg-500 mg capsule (Fish Oil) ezetimibe 10 mg tablet (Zetia) 10 mg PO DAILY #90 tabs 12/21/24 Held on 05/05/25. Instructions: Changed by Provider metformin 500 mg tablet,extended 1,000 mg PO BID 05/05/25 release 24 hr (Glucophage XR) alirocumab 75 mg/mL subcutaneous 75 mg subcut Q14D 05/11/25 pen injector bisacodyl 5 mg tablet,delayed 5 mg PO ONCE #4 tabs 05/13/25 release (Dulcolax (bisacodyl)) polyethylene glycol 3350 17 17 g PO ONCE #238 grams 05/13/25 gram/dose oral powder Current Visit Medications: Current Medications Generic Name Dose Route Start Last Admin Trade Name Freq PRN Reason Stop Dose Admin Ringer's Solution 1,000 mls @ 80 mls/hr 07/07/25 06:00 07/07/25 06:32 IV 07/07/25 23:59 80 mls/hr INFUSION BRIGIDA Administration IV Miscellaneous Supplies 1 each 07/07/25 06:00 Iv Access IV 07/07/25 23:59 DIRECTED BRIGIDA Sodium Chloride 0 ml 07/07/25 06:00 Normal Saline Flush 10 Ml Syr IV 07/07/25 23:59 PRN PRN Sodium Chloride 0 ml 07/07/25 06:00 Normal Saline 10 Ml Vial IJ 07/07/25 23:59 DIRECTED PRN Sterile Water 0 ml 07/07/25 06:00 Water,Injection,Sterile 10 Ml Vial IJ 07/07/25 23:59 DIRECTED PRN PFSH Active Problems Active Problems: Problem Status Onset Code Familial hypercholesteremia Acute E78.01 Family history of arteriosclerotic cardiovascular disease Acute Z82.49 Disorder of cholesterol metabolism Acute E78.9 Fatigue Acute R53.83 Type 2 diabetes mellitus Acute E11.9 Obesity (BMI 30.0-34.9) Acute E66.811 Pelvic pain Acute R10.2 Surgical History Surgical History History of tubal ligation Tobacco Smoking/Tobacco Use Status: Never Passive smoking exposure: No Alcohol Alcohol Intake: never Substance Use Substance use: Never Substance use type: does not use Vital Signs and Lab Results Vital Signs Most Recent Vital Signs in EMR: Most Recent Vital Signs Temp Pulse Resp BP Pulse Ox 36.5 C 84 18 168/89 H 96 07/07/25 06:15 07/07/25 06:15 07/07/25 06:15 07/07/25 06:15 07/07/25 06:15 Point of Care Results Point of Care Results: Finger Stick Blood Glucose 157 07/07/25 06:26 Imaging and Studies Imaging and Studies Study information below may be from another EMR and interpreted by another provider. Please see original notes in EMR for more complete details. EKG Summary: 12/21/24: Exam: Resting ECG Reason for Exam: elevated ASCVD risk Patient Location: O HR:62 bpm ECG Measurements Heart Rate 62 AXIS UT 216 P 33 QRSd 99 QRS -6 QT 417 T37 QTc 424 Conclusion Sinus rhythm...normal P axis, V-rate 50- 99 Borderline prolonged UT interval...UT >212, V-rate 50- 90 Stress Test Summary: 06/03/25: Stress ECG Conclusion 1. Resting electrocardiogram was normal 2. Patient exercised on the Brian protocol and completed a workload of 5.83 METS 3. Normal heart rate and blood pressure response to exercise. The patient achieved 91% of maximal predicted heart rate for age 4. There was no electrocardiographic evidence of myocardial ischemia 5. There were no significant dysrhythmias 6. See MPI report Echocardiogram Summary: 06/03/25: Conclusion Normal left ventricular wall thickness and chamber size. Ejection fraction is 55 to 60%. Wall motion is normal Normal right ventricular size and function Both atria are normal in size Aortic valve is mildly sclerotic and trileaflet without stenosis or regurgitation Mild mitral annular calcification Anesthesia Assessment and Plan Anesthesia History Personal History: No History of Anesthesia Complications Family History: No Family History of Anesthesia Complications Exercise Tolerance Exercise Tolerance: Metabolic Equivalents>4 Cardiac & Pulmonary Exam Cardiac Exam: Normal S1/S2 Heart Sounds Pulmonary Exam: Clear Bilateral Breath Sounds Implantable Cardiac Device Does patient have a Pacemaker or an ICD?: No Airway Exam Known Difficult Airway: No Mallampati Class: 3 Mouth Opening: Narrow (< 3cm) Thyromental Distance: Greater than 3 cm Neck Range of Motion: Full ROM Neck Circumference: Normal Teeth Condition: Normal Dentition ASA Classification ASA Score: ASA 2 Emergency Case?: No NPO Status NPO Status: NPO Clears >2 hours, Solids >8 hours Anesthesia Plan Resuscitation Status: Full Code Anesthesia Technique: General Anesthesia Airway Planned: Natural Airway Monitors Used: Standard Monitors
[2025-07-07 07:21] VITALS: BMI 34.7
--- NOTE | 2025-07-07 07:21 | W.PM.HP.N ---
Date of service: 07/07/25 Time of Service: 07:21 Assessment and Plan Assessment and plan (1) Screening for colon cancer: Status: Acute Assessment and plan: Patient is a 69 yo female who presents for a screening colonoscopy. She denies any changes in her bowel habits or family history of colon cancer. She underwent a cardiac work up prior to her procedure. Will plan for a screening colonoscopy. Risk and benefits were discussed and consent was obtained prior to the procedure. Plan for screening colonoscopy. History of Present Illness Narrative: Patient is a 69 yo female who presents for a screening colonoscopy. She denies any changes in her bowel habits or family history of colon cancer. Review of Systems Constitutional Constitutional: Denies chills and Denies fever(s) Cardiovascular Cardiovascular: Denies chest pain and Denies dyspnea Respiratory Respiratory: Denies dyspnea Gastrointestinal Gastrointestinal: Denies abdominal pain, Denies nausea and Denies vomiting Genitourinary Genitourinary: Denies dysuria PFSH All Active Problems (Updated 07/07/25 @ 07:24 by Britta Peña MD) Screening for colon cancer (Acute) Familial hypercholesteremia (Acute) Family history of arteriosclerotic cardiovascular disease (Acute) sister, 7 years younger, MD with 2 stents 11/25/24 RH Disorder of cholesterol metabolism (Acute) Fatigue (Acute) Type 2 diabetes mellitus (Acute) Obesity (BMI 30.0-34.9) (Acute) Pelvic pain (Acute) Surgical History History of tubal ligation Social History Smoking/Tobacco Use Status: Never Smoking risk assessment performed?: Yes Alcohol Intake: never Drug use: Never Substance use type: does not use Housing: house Do you feel safe at home: Yes Do you feel safe in your relationship?: Yes Meds Allergies and Home Medications Allergies Allergy/AdvReac Type Severity Reaction Status Date / Time cephalexin Allergy Severe Anaphylaxis Verified 07/07/25 06:25 Home Medications Medication Instructions Recorded Confirmed Type cholecalciferol (vitamin D3) 10 1,000 unit PO DAILY 11/25/24 07/07/25 History mcg/5 mL (400 unit/5 mL) oral liquid nystatin 100,000 unit/gram topical 1 applic topical DAILY PRN 11/25/24 07/07/25 History cream omega 1-pxp-drx-fish oil 60 mg-90 1 cap PO DAILY 11/25/24 07/07/25 History mg-500 mg capsule (Fish Oil) ezetimibe 10 mg tablet (Zetia) 10 mg PO DAILY #90 tabs 12/21/24 07/07/25 Rx Held on 05/05/25. Instructions: Changed by Provider metformin 500 mg tablet,extended 1,000 mg PO BID 05/05/25 07/07/25 History release 24 hr (Glucophage XR) alirocumab 75 mg/mL subcutaneous 75 mg subcut Q14D 05/11/25 07/07/25 History pen injector bisacodyl 5 mg tablet,delayed 5 mg PO ONCE #4 tabs 05/13/25 07/07/25 Rx release (Dulcolax (bisacodyl)) polyethylene glycol 3350 17 17 g PO ONCE #238 grams 05/13/25 07/07/25 Rx gram/dose oral powder Exam Narrative Exam Narrative: General: Well appearing, no acute distress. Skin: Good turgor, no visible rashes or lesion HEENT: Normocephalic, atraumatic CV: Regular rate Lungs: Bilateral equal chest rise, non-labored breathing Abdomen: Non-distended Extremities: Warm, well perfused Neurologic: No focal deficits Psychiatric: Alert and oriented, normal mood and affect Results Last Vital Signs Temp 36.5 C 07/07/25 06:15 Pulse 84 07/07/25 06:15 Resp 18 07/07/25 06:15 BP 168/89 H 07/07/25 06:15 Pulse Ox 96 07/07/25 06:15 Time Spent Time spent with Patient: <40 minutes Time was spent: preparing to see the patient(eg.review tests), obtaining and/or reviewing separately otained hiistory and counseling the patient
--- NOTE | 2025-07-07 07:58 | W.PM.DSUDISC ---
Date of service: 07/07/25 Discharge Plan Disposition Patient Disposition: Home Condition: Good Discharge Details Reason For Visit: Screening colonoscopy Attending Provider: Britta Peña Primary Care Provider: Bertha Wiggins Home Meds and New Rx's Prescriptions: Continued metformin [Glucophage XR] 500 mg tablet extended release 24 hr 1,000 mg PO BID ezetimibe [Zetia] 10 mg tablet 10 mg PO DAILY Qty: 90 3RF omega 3-dqa-pgc-fish oil [Fish Oil] 60-90-500 mg capsule 1 cap PO DAILY nystatin 100,000 unit/gram cream 1 applic topical DAILY PRN cholecalciferol (vitamin D3) 10 mcg/5 mL (400 unit/5 mL) liquid 1,000 unit PO DAILY alirocumab 75 mg/mL pen injector 75 mg subcut Q14D Patient Comments: 05/11/25 rx sent to [facility] [place] [facility] Discontinued bisacodyl [Dulcolax (bisacodyl)] 5 mg tablet,delayed release (DR/EC) 5 mg PO ONCE Qty: 4 0RF Rx Instructions: Take per colonoscopy instructions provided by ordering providers office polyethylene glycol 3350 17 gram/dose powder 17 g PO ONCE Qty: 238 0RF Rx Instructions: Take per colonoscopy instructions provided by ordering providers office Discharge Instructions Additional Instructions: Your colonoscopy went well today. Your entire colon was normal. The recommendation would be to have another colonoscopy in 10 years. If you have any questions or concerns please contact the General Surgery office. 1. If tolerated, consume a soft, low fiber diet for 1-2 days. 2[address] Do not drive, drink alcohol, operate machinery, make critical decisions, or do activities that require coordination or balance for 24 hours. 3. Because air was put into your colon during the procedure, expelling air from your rectum (passing gas or farting) is normal. 4. You may not have a bowel movement for 1-3 days because of the colonoscopy prep. This is normal. 5. Go directly to the emergency room if you notice any of the following: Develop chills (warm to touch), or if you have a thermometer and your temperature is above 101 Difficulty breathing or difficultly swallowing Persistent vomiting Severe abdominal pain, other than gas cramps Severe chest pain Black, tarry stools Any bleeding – exceeding one tablespoon 6. Call your physician if the site where your intravenous was started becomes red, swollen, painful, and warm to touch. 7. Your physician has reviewed your pre-procedure medications. Please continue to take those medications as previously ordered. You will be given specific information/education regarding any changes to your medications before leaving. Stand Alone Forms: Anesthesia Discharge InstCt [place] (DSU) Activity:: Activity as Tolerated Diet:: As Tolerated Discharge Orders Discharge Orders: Discharge Order (Routine); Ordered 07/07/25 Ordered By: Britta Peña DS: Diagnosis Discharge Diagnosis (1) Screening for colon cancer: Status: Acute
[2025-07-07 08:00] VITALS: BP 118/81; PULSE 69; RESP 16; TEMP 36.1; O2SAT 96
--- NOTE | 2025-07-07 08:00 | COLE_ITS ---
Date of service: 07/07/25 Time of Service: 08:00 Colonoscopy Report Date of procedure: 07/07/25 Pre-op diagnosis general: Screening colonoscopy Post-op diagnosis procedure note: same Procedure: Colonoscopy Surgeon: Britta Peña Anesthesia Type: General:No Airway Estimated blood loss (mL): 1 Pathology: other Complications: Other Disposition: PACU Indications: Patient is a 69 yo female who presents for a screening colonoscopy. She denies any changes in bowel habits or a family history of colon cancer. Prep: Miralax/Dulcolax Procedure Start Time: 07:39 Procedure End Time: 07:54 Retraction Time: 11 Findings: Normal colonoscopy. Procedure Description: Informed consent was obtained. The patient was taken to the endoscopy suite and placed in the left lateral decubitus position. After adequate intravenous sedation, digital rectal exam was performed, which was normal. A colonoscope was inserted into the rectum and easily negotiated to the cecum. The ileocecal valve and appendiceal orifice were identified. The entire colonic mucosa was then carefully circumferentially inspected upon slow withdrawal of the scope. The entire colon appeared normal. Retroflexion in the rectum was unremarkable. The patient tolerated the procedure well with no complications. Postoperatively, the patient was transferred to the recovery room in stable condition. [place] Bowel Prep [place] Bowel Prep Right Colon: 3 Left Colon: 3 Transverse Colon: 3 Total Score: 9
--- NOTE | 2025-07-07 08:09 | W.ANESPOSTOP ---
Postoperative Evaluation Date, Time and Location Date Performed: 07/07/25 Time Performed: 08:02 Patient Location: Day Surgery Unit Vital Signs Most Recent Imported Vital Signs: Most Recent Vital Signs Temp Pulse Resp BP Pulse Ox 36.1 C L 69 16 118/81 96 07/07/25 08:00 07/07/25 08:00 07/07/25 08:00 07/07/25 08:00 07/07/25 08:00 Pain Score Most Recent Pain Score: Most Recent Pain Score Pain Level 0 07/07/25 08:00 Assessment Mental Status: Awake (Alert & Oriented to Patient Baseline) Airway and Respiratory Function: Patent airway with normal (patient baseline) respiratory exam Cardiovascular Function: Hemodynamically Stable Hydration Status: Adequately Hydrated Nausea & Vomiting: No Nausea or Vomiting Pain: Pt. Denies Any Pain Peripheral Nerve Block: Patient did not receive a nerve block
[2025-07-07 08:22] VITALS: BP 136/78; PULSE 65; RESP 14; TEMP 36.4; O2SAT 98
== END 2025-07-07 08:37 | disposition home or self-care (01) ==
PROVIDERS: PCP Nurse Practitioner Family; Visit Provider Student in an Organized Health Care Education/Training Program
PROC: 0DJD8ZZ Inspection of Lower Intestinal Tract, Via Natural or Artificial Opening Endoscopic (ICD-10-PCS; CPT 45378; principal; 2025-07-07 07:30)
DX: Z12.11 Encounter for screening for malignant neoplasm of colon (principal)
CPT/HCPCS: G0121; J2704

== ENCOUNTER → 2025-08-04 13:49 | Outpatient (BNVA) | payer MEDICARE, OTHER, SELFPAY | PROVIDERS: PCP Nurse Practitioner Family; Visit Provider Registered Nurse | DX: E78.019 Familial hypercholesterolemia, unspecified (principal); E11.9 Type 2 diabetes mellitus without complications | CPT/HCPCS: 99214 ==

== ENCOUNTER 2025-08-12 01:38 | Outpatient (CLI) | payer MEDICARE, OTHER, SELFPAY ==
[2025-08-12 09:31] LABS: HCT 41.8 % (36.0-46.0); HGB 13.6 g/dL (11.2-15.7); MCH 28.5 pg (27.0-33.0); MCHC 32.5 % (32.0-36.0); MCV 88 fL (80-95); MPV 9.7 fL (8.0-11.0); Platelet Count 329 10^3/uL (130-400); RBC 4.77 10^6/uL (3.93-5.22); RDW 12.9 % (11.7-14.6); RDW-SD 41.3 fL; WBC 8.71 10^3/uL (4.4-10.8)
[2025-08-12 10:37] LABS: ALT 33 U/L (10-49); AST 29 U/L (<34); Albumin 4.4 g/dL (3.2-5.0); Alkaline Phosphatase 98 U/L (46-116); Bilirubin, Direct 0.1 mg/dL (<=0.3); Bilirubin, Total 0.40 mg/dL (0.2-1.2); Total Protein 7.4 g/dL (5.7-8.2)
[2025-08-12 10:53] LABS: Cholesterol 182 mg/dL (<200); HDL Cholesterol 52 mg/dL (>40)
== END 2025-08-12 01:39 | disposition home or self-care (01) ==
LOC: LBO 01:38
PROVIDERS: PCP Nurse Practitioner Family; Visit Provider Registered Nurse
DX: E78.00 Pure hypercholesterolemia, unspecified (principal)
CPT/HCPCS: 36415; 80061; 80076; 85027